=== PATIENT | female | born 1975 | race Asian ===

== ENCOUNTER 2016-09-12 13:29 | Emergency (ER) | payer BC ==
--- NOTE | ~2016-09-12 | CR72 ---
[facility] A Service of [facility] & [facility] [place] RADIOLOGY TEXT RESULTS PATIENT: MIKAYLA SAMUELS LOCATION: SED : 73 UNIT #: [id number] AGE: [address]: Arlene Marie MD SEX: F ORDER DR: [id number] [address] [address] [id number] E MR#: [id number] Acc #: [id number] NAME: MIKAYLA SAMUELS : 1975 SEX: F STUDY DATE/TIME: 09/12/2016 15:02 UNIT: SED ROOM: STUDY DESCRIPTION: CR Chest Single View Portable Attending Physician: Arlene Marie M.D. Ordering Physician: Arlene Marie M.D. Primary Care Physician: Adrián Schilling D.O. MEDICAL IMAGING REPORT This report is preliminary unless electronic signature is present. EXAM Portable chest. INDICATION Heart palpitations starting this morning, 09/12. COMPARISON 01/13/2009. FINDINGS A portable view of the chest was obtained. The heart size and vascularity are normal. Lungs are clear. The bones are unremarkable. IMPRESSION No active disease. Dictated by... Everardo Kamara M.D. THIS IS AN ELECTRONICALLY VERIFIED REPORT Everardo Kamara M.D. at 09/13/2016 7:05 AM VITOR/nicho TD: 09/12/2016 21:02 JOB #: [id number] MEDICAL IMAGING REPORT Page 1 of 1
--- NOTE | ~2016-09-12 | EKG ---
PATIENT: MIKAYLA SAMUELS UNIT #: [id number] Ventricular Rate: 92 BPM Atrial Rate: 92 BPM P-R Interval: 126 ms QRS Duration: 72 ms Q-T Interval: 344 ms QTC Calculation(Bezet): 425 ms P [place]: 72 degrees Calculated R [place]: 50 degrees Calculated T [place]: 42 degrees Diagnosis Line: Normal sinus rhythm Diagnosis Line: Possible Left atrial enlargement Diagnosis Line: ST abnormality, possible digitalis effect Diagnosis Line: Abnormal ECG Diagnosis Line: When compared with ECG of 13-JAN-2009 20:22, Diagnosis Line: No significant change was found Diagnosis Line: Confirmed by TANNER OSMAN MD ([id number]) on Diagnosis Line: 09/16/2016 10:26:48 PM INTERPRETING : SANDRA
[~2016-09-12 13:29] MED LIST: BENADRYL25 M1 PO; DAYTIME COLD F PO; LOC PO; NORFLEX100 M1 DOB; OMEPRAZOLE20 M2 PO; PEPCID PO; PHENERGAN25 M1 DOB; PREDNISONE5 MG PO; PRENATAL VITAMI1 TA3 PO; PSEUDOEPHEDRIN120 M1 PO; TETRACYCLINE PO; TUSSIN DM SYRU; TYLENOL #3 PO; VEGETABLE LAXA390 GM; VITAMIN C PO; VITAMIN D-32000 UNIT PO; VOLTAREN75 MG PO
[2016-09-12 14:13] LABS: BASOPHIL% 0.4 % (0-2.5); EOSINOPHIL% 0.4 % (0.0-7.0); HEMATOCRIT 43.7 % (35.0-45.0); HEMOGLOBIN 14.9 gm/dL (12.0-16.0); LYMPHOCYTE# 1.5 X10e3 (1.0-3.5); LYMPHOCYTE% 17.7 % (17.0-45.0); MEAN CELL VOLUME 91.3 FL (83-96); MEAN CORPUSCULAR HEMOGLOBIN 31.1 PG (28-34); MEAN CORPUSCULAR HGB CONC 34.1 g/dL (30-36); MEAN PLATELET VOLUME 9.7 FL (6.5-11.5); MONOCYTE# 0.8 X10e3 (0-1.0); MONOCYTE% 9.2 % (3.0-12.0); NEUTROPHIL# 6.2 X10e3 (1.5-7.1); NEUTROPHIL% 72.3 % (40-75); PLATELET COUNT 264 X10e3 (140-420); RED BLOOD COUNT 4.78 X10e (3.90-5.30); RED CELL DISTRIBUTION WIDTH 13.2 % (11.0-15.5); WHITE BLOOD COUNT 8.6 X10e3 (4.0-10.5)
[2016-09-12 14:17] LABS: POC - CKMB <1.0 ng/mL (0.0-7.9); POC - TROPONIN <0.05 ng/mL (<=0.05)
[2016-09-12 14:23] LABS: URINE SOURCE CLEAN CATCH
[2016-09-12 14:26] LABS: PROTHROMBIN TIME (PATIENT) 11.5 SECONDS (9.5-12.4)
[2016-09-12 14:33] LABS: PARTIAL THROMBOPLASTIN TIME 37.3 SECONDS (25.6-38.1)
[2016-09-12 14:34] LABS: URINE APPEARANCE CLEAR; URINE BILIRUBIN NEG (NEG); URINE BLOOD NEG (NEG); URINE COLOR YELLOW; URINE GLUCOSE NEG (NORM); URINE KETONE NEG (NEG); URINE LEUKOCYTE ESTERASE NEG (NEG); URINE NITRATE NEG (NEG); URINE PROTEIN NEG (NEG); URINE SPECIFIC GRAVITY <=1.005 (1.003-1.035); URINE UROBILINOGEN 0.2 MG/DL (NORM)
[2016-09-12 14:34] LABS: ALBUMIN SERUM 4.6 g/dL (3.5-5.0); ALKALINE PHOSPHATASE 45 U/L (32-92); ALT (SGPT) 12 U/L (10-40); AMYLASE 26 U/L (0-46); AST (SGOT) 17 U/L (10-42); BILIRUBIN,TOTAL 0.5 mg/dL (0.2-2.0); BLOOD UREA NITROGEN 14 mg/dL (9-23); BUN/CREATININE RATIO 23.33; CALCIUM SERUM 9.4 mg/dL (8.4-10.2); CARBON DIOXIDE 24 mmol/L (22-31); CHLORIDE 102 mmol/L (100-111); CREATININE SERUM 0.6 mg/dL (0.6-1.4); GLOM FILT RATE Estimated 112.4 mL/min (>60); GLUCOSE FASTING 106 mg/dL (70-110); MAGNESIUM 2.1 mg/dL (1.6-3.0); POTASSIUM 3.9 mmol/L (3.5-5.1); PROTEIN TOTAL SERUM 8.4 g/dL (6.0-8.3); SODIUM 133 mmol/L (135-145)
[2016-09-12 14:35] LABS: DIFF IND NO
[2016-09-12 14:36] LABS: MICRO INDICATED? NO
[2016-09-12 14:36] LABS: BILIRUBIN, DIRECT <0.1 mg/dL (0.0-0.2); BILIRUBIN,INDIRECT 0.4 mg/dL (0.0-0.9)
[2016-09-12 14:41] LABS: AMPHETAMINE NEG (NEG); BARBITURATES NEG (NEG); BENZODIAZEPINES NEG (NEG); COCAINE NEG (NEG); MARIJUANA NEG (NEG); OPIATES NEG (NEG); TRICYCLIC ANTIDEPRESSANTS NEG (NEG); U METHADONE NEG (NEG)
[2016-09-12 14:52] LABS: DDIMER <200 NG/ML (0-200)
[2016-09-12 15:36] LABS: POC - CKMB <1.0 ng/mL (0.0-7.9); POC - TROPONIN <0.05 ng/mL (<=0.05)
== END 2016-09-12 16:17 | disposition home or self-care (01) ==
LOC: SED 13:29
PROVIDERS: Student in an Organized Health Care Education/Training Program
DX: I49.9 Cardiac arrhythmia, unspecified (principal); I47.1 Supraventricular tachycardia
CPT/HCPCS: 36415; 71010; 80048; 80076; 80307; 81003; 82150; 82553; 83735; 83880; 84443; 84484; 84703; 85025; 85379; 85610; 85730; 93005; 96361; 96374; 99284; 99291; J0153